=== PATIENT | female | born 1935 | race Caucasian/White ===

== ENCOUNTER 2017-01-19 16:38 | Emergency (ER) | payer OTHER ==
[~2017-01-19] VITALS: Ht 157.5 cm; Wt 34.5 kg
[~2017-01-19 16:38] MED LIST: ASPI-496 PO; ATEN50TA41 PO; BENA40TA2 PO; CLON0.5T20 PO; FENO145T13 PO; FENO160T PO; FURO20TA3 PO; GABA-827 PO; LEVO75TA5 PO; OMEP-110 PO; PARO40TA3 PO; POTA10TA12 PO; POTA20PA PO; SIMV40TA3 PO; TRAM1TAB56 PO; TRAM300T2 PO
[2017-01-19] MEDS ORDERED: SODIUM CHLORIDE 0.9% 1,000ML IVBOLUS ONE (17:00)
[2017-01-19] MEDS ORDERED: SODIUM CHLORIDE FLUSH 10ML SYR IVF ONE (17:00)
[2017-01-19 17:47] LABS: ASPARTATE AMINO TRANSFERASE 10 U/L (15-37); BLOOD UREA NITROGEN 11 mg/dL (7-18)
[2017-01-19 17:57] LABS: IS PT STATUS REG ER OR PRE ER? YES
[2017-01-19 18:09] LABS: HEMATOCRIT 47.1 % (34.6-47.8); HEMOGLOBIN 15.8 g/dL (11.7-16.4); WHITE BLOOD COUNT 13.1 x10^3/uL (3.4-10)
[2017-01-19 18:12] LABS: LARGE PLATELETS 1+
[2017-01-19] MEDS ORDERED: OMNIPAQUE 350 MG/ML, 100ML BOTTLE ONE (18:25)
[2017-01-19 20:15] VITALS: BP 92/49
== END 2017-01-19 20:17 | disposition home or self-care (01) ==
LOC: ED 20:15
DX: K59.00 Constipation, unspecified (principal); J44.9 Chronic obstructive pulmonary disease, unspecified; K21.9 Gastro-esophageal reflux disease without esophagitis; E78.5 Hyperlipidemia, unspecified; E11.9 Type 2 diabetes mellitus without complications; I11.0 Hypertensive heart disease with heart failure; I50.9 Heart failure, unspecified
CPT/HCPCS: 36415; 74177; 80053; 81003; 83690; 83735; 84484; 85025; 93005; 96360; 96361; 99285; J7030; Q9967

== ENCOUNTER 2018-09-14 15:29 | Emergency (ER) | payer SELFPAY ==
[~2018-09-14] VITALS: Ht 154.9 cm; Wt 40.0 kg
[~2018-09-14 15:29] MED LIST changes: +ATROPINE SYRINGE 0.1 MG/ML, 10ML ONE; -BENA40TA2 PO; +BENA40TA3 PO; +CALCIUM CHLORIDE 10%, 10ML SYR ONE; +EPINEPHRINE SYRINGE 0.1 MG/ML, 10ML ONE; +ETOMIDATE 40 MG/20 ML ONE; -FENO145T13 PO; +FENO145T30 PO; -POTA20PA PO; +POTA20PA31 PO; +ROCURONIUM 10 MG/ML,10ML ONE; +SODIUM BICARB 8.4%, 50ML SYRINGE ONE; +SUCCINYLCHOLINE 20 MG/ML, 10ML ONE; -TRAM300T2 PO; +TRAM300T26 PO
[2018-09-14 15:39] VITALS: BP 61/33
[2018-09-14] MEDS ORDERED: INSULIN SINGLE DOSE, ER SQ-INSULIN ONE (15:49)
--- NOTE | 2018-09-14 15:59 | NUR ---
PT WAS BIB [facility] C/O SOB X 1 MONTH (PT WAS SUPPOSED TO START USING O2 BUT NEVER FOLLOWED UP) AND N/V/D X THE LAST FEW DAYS. PER EMS SHE WAS AO X 4, [facility] 15 EN ROUTE, UPON ARRIVING TO ROOM 28, PT WAS UNRESPONSIVE WITH [place]UGG[place] PUPILS. PT WAS NOT RESPONSIVE TO STERNAL RUB. BREATHING APPEARED AGONAL. PULSES WERE FAINT AND DIFFICULT TO PALPATE. AFIB NOTED ON RECEIVING INSPECTOR. CODE NEURO CALLED, PT TRANSFERRED TO [facility]. UPON ARRIVAL TO [facility] PT WAS IMMEDIATELY INTUBATED BY ALEX WELCH WITH 7.5 ET TUBE 22 IN AT LIP. PT THEN BEGAN TO HAVE A DECREASED HR INTO THE 30'S. PULSES NOT PALPATED AND CPR STARTED AT 1544. ROSC OBTAINED AT 1549 AND PT NOW 80'S AFIB ON RECEIVING INSPECTOR. REPORT TO ALIN BLACK WHO ASSUMED CARE OF PT. ADMITTING MD HERNANDEZ AT BEDSIDE FOR EVAL.
[2018-09-14] MEDS ORDERED: SODIUM CHLORIDE FLUSH 10ML SYR IVF ONE (16:00)
[2018-09-14] MEDS ORDERED: SODIUM CHLORIDE 0.9% 1,000ML IVBOLUS ONE ×2 (16:00→17:30)
[2018-09-14] MEDS ORDERED: CODE BLUE RESPONSE XX ONE (16:30)
[2018-09-14] MEDS ORDERED: PLEASE ENTER HEIGHT AND WEIGHT MC SCH (16:30)
[2018-09-14] MEDS ORDERED: NOREPINEPHRINE 1 MG/ML, 4ML ONE (16:30)
[2018-09-14] MEDS ORDERED: ATROPINE SYRINGE 0.1 MG/ML, 10ML ONE (16:30)
[2018-09-14] MEDS ORDERED: EPINEPHRINE SYRINGE 0.1 MG/ML, 10ML ONE (16:30)
[2018-09-14] MEDS ORDERED: SODIUM CHLORIDE 0.9%, 250ML ONE (16:30)
[2018-09-14 16:39] LABS: ALANINE AMINOTRANSFERASE 21 U/L (12-78); ALBUMIN 0.8 g/dL (3.4-5.0); ANION GAP 15 mmol/L (5-15); CALCIUM 10.4 mg/dL (8.5-10.1); CHLORIDE 126 mmol/L (98-107)
[2018-09-14 16:43] LABS: ALKALINE PHOSPHATASE 53 U/L (45-117); TOTAL PROTEIN 2.3 g/dL (6.4-8.2)
[2018-09-14 16:46] LABS: BILIRUBIN,TOTAL < 0.1 mg/dL (0.2-1.0)
--- NOTE | 2018-09-14 17:11 | NUR ---
LEFT MESSAGE FOR SON, BENNETT, REQUESTING A CALL-BACK URGENTLY AT .
--- NOTE | 2018-09-14 17:15 | NUR ---
[employer] NOTIFIED OF PATIENT'S . PATIENT HAS BEEN DECLINED FOR TISSUE BANK AND [facility] NETWORK PER GUILLE AT [employer]. REFERENCE OEXTBO=[id number].
[2018-09-14] MEDS ORDERED: NOREPINEPHRINE 4 MG in SODIUM CHLORIDE 0.9% 246 ML IV PRN (17:16)
--- NOTE | 2018-09-14 17:17 | NUR ---
KIANA AT [facility] OFFICE NOTIFIED OF PATIENT'S . NEXT OF KIN INFORMATION GIVEN TO KIANA. DR. WELCH ALSO SPOKE WITH KIANA AND GAVE CAUSE OF INFORMATION. AWAITING CALL-BACK FROM KIANA AT [facility]ICE TO RECEIVE A CASE NUMBER.
[2018-09-14] MEDS ORDERED: EPINEPHRINE 1 MG/ML, 1ML IVPush ONE ×5 (17:30)
[2018-09-14] MEDS ORDERED: INSULIN REGULAR 100 UNITS/ML, 3ML VIAL IVPush ONE (17:30)
[2018-09-14] MEDS ORDERED: DEXTROSE 50%, 50ML SYRINGE IVPush ONE (17:30)
[2018-09-14] MEDS ORDERED: ETOMIDATE 20 MG/10 ML IV ONE (17:30)
[2018-09-14] MEDS ORDERED: CALCIUM CHLORIDE 10%, 10ML SYR IVPush ONE (17:30)
[2018-09-14] MEDS ORDERED: SUCCINYLCHOLINE 20 MG/ML, 10ML IVPush ONE (17:30)
[2018-09-14] MEDS ORDERED: ATROPINE SYRINGE 0.1 MG/ML, 10ML IVPush ONE ×2 (17:30)
[2018-09-14] MEDS ORDERED: SODIUM BICARB 8.4%, 50ML SYRINGE IVPush ONE (17:30)
--- NOTE | 2018-09-14 17:37 | NUR ---
LATE ENTRY. ASSUMED CARE OF PATIENT AFTER PATIENT BECAME UNRESPONSIVE IN ROOM 28 AND CODE NEURO WAS CALLED, WHICH BECAME A CODE BLUE AT 1542 WHEN PATIENT WAS INTUBATED BY DR. WELCH. PATIENT WAS GIVEN ATROPINE, 2 ROUNDS OF EPINEPHRINE AND BICARB, CACL AND D50 AND INSULIN WELL IV FLUIDS AND LEVOPHED DRIP FOR HYPOTENSION OF SYSTOLIC BETWEEN 50s AND 70s. A TRIPLE-LUMEN CENTRAL LINE WAS INSERTED BY DR. WELCH WHEN PATIENT BECAME PULESLESS AGAIN AND A SECOND CODE BLUE WAS INITIATED. TWO MORE ROUNDS OF EPINEPHRINE WERE GIVEN WELL ATROPINE, WHILE CONTINUING HIGH-QUALITY CPR DURIN THE CODE. PULSES WERE NEVER REGAINED AND PATIENT WAS PROUNOUNCED AT 1631.
--- NOTE | 2018-09-14 17:54 | NUR ---
BENNETT SOLANO, SON, ADDRESS: [address] [place] [address]. CELL PHONE= [phone]. HOME PHONE .
--- NOTE | 2018-09-14 18:14 | NUR ---
SPOKE AGAIN WITH KIANA AT [facility] OFFICE AND GAVE HER PATIENT'S SON, BENNETT, CONTACT INFO INCLUDING BOTH PHONE NUMBERS AND ADDRESS. CASE NUMBER OBTAINED FROM KIANA. PATIENT HAS BEEN DECLINED AND IS FREE TO GO TO [facility].
--- NOTE | 2018-09-14 18:34 | NUR ---
CALLED [facility] AND SPOKE WITH ON-CALL DISPATHER AND GAVE HER PATIENT'S SON, BENNETT, INFO INCLUDING TELEPHONE NUMBERS. [facility] TO [facility]IL[facility] APPRENTICE PATIENT'S BODY AT AROUND 1900.
--- NOTE | 2018-09-14 19:00 | NUR ---
PT DOUBLE BAGGED. LABELED TOE TAG ON AND LABELED TAG ON SHROUD.
== END 2018-09-14 19:30 | disposition expired ==
LOC: ED 19:00
DX: I46.8 Cardiac arrest due to other underlying condition (principal); R09.02 Hypoxemia; J44.9 Chronic obstructive pulmonary disease, unspecified; K21.9 Gastro-esophageal reflux disease without esophagitis; E78.5 Hyperlipidemia, unspecified; I50.9 Heart failure, unspecified; I11.0 Hypertensive heart disease with heart failure
CPT/HCPCS: 31500; 32551; 36556; 36600; 80047; 80053; 82140; 83605; 83735; 83880; 84484; 87070; 87205; 92950; 99291; J0330; J0461; J1815; J7050; 94002